=== PATIENT | female | born 1965 | race Caucasian/White ===

== ENCOUNTER → 2017-03-20 16:01 | Outpatient (CLI) | payer BC ==
[~2017-03-20 16:01] MED LIST: HYDROCODON-ACE1 EAC7 PO
[2017-03-20 21:41] VITALS: BMI 34.4
== END | disposition home or self-care (01) ==
LOC: D.CT 16:01
DX: R10.9 Unspecified abdominal pain (principal)

== ENCOUNTER → 2017-04-01 11:39 | Outpatient (CLI) | payer BC ==
[2017-03-20 21:41] VITALS: BMI 34.4
== END | disposition home or self-care (01) ==
LOC: D.CT
DX: R10.9 Unspecified abdominal pain (principal)

== ENCOUNTER → 2018-02-01 11:28 | Outpatient (CLI) | payer BC ==
[2017-03-20 21:41] VITALS: BMI 34.4
== END | disposition home or self-care (01) ==
LOC: D.US 11:28 → D.NM 13:00
DX: R10.11 Right upper quadrant pain (principal)